=== PATIENT | female | born 1955 | race Caucasian/White ===

== ENCOUNTER 2022-09-01 13:59 | Outpatient (CLI) | payer BC, MEDICARE | END 2022-09-01 14:00 | disposition home or self-care (01) | LOC: CSHCP 13:59 | PROVIDERS: ATTEND Internal Medicine | DX: R05.3 Chronic cough (principal); J44.9 Chronic obstructive pulmonary disease, unspecified | CPT/HCPCS: 94060; 94726; 94729; 94760 ==